=== PATIENT | female | born 1995 | race African-American/Black ===

== ENCOUNTER 2018-01-10 14:25 | Observation (INO) | payer MEDICAID ==
[~2018-01-10] VITALS: Ht 175.3 cm; Wt 95.7 kg
[2018-01-10 14:45] VITALS: BP 122/62
[2018-01-10 17:28] LABS: BASOPHILS % 0.3 % (0.0-2.0); EOSINOPHILS % 0.6 % (0.0-5.0); HEMATOCRIT. 30.8 % (36.0-48.0); HEMOGLOBIN. 10.2 g/dL (12.0-16.0); LYMPHOCYTES % 23.9 % (20.0-50.0); MEAN CORPUSCULAR HEMOGLOBIN 28.7 pg (28.0-32.0); MEAN CORPUSCULAR VOLUME 87.2 fL (81.0-99.0); MONOCYTES % 8.1 % (2.0-8.0); NEUTROPHILS % 67.1 % (40.0-76.0); PLATELET 269 x1000/uL (130-400); RED BLOOD CELL COUNT 3.53 mill/uL (4.2-5.4); RED CELL DISTRIBUTION WIDTH 13.7 % (11.6-14.6)
[2018-01-10] MEDS ORDERED: PNV1TABL76 MT (18:53)
== END 2018-01-10 19:00 | disposition home or self-care (01) ==
LOC: ER 14:25 → L&D 16:28
PROVIDERS: ADMIT Obstetrics & Gynecology; ATTEND Obstetrics & Gynecology
DX: O26.892 Other specified pregnancy related conditions, second trimester (principal); Z3A.25 25 weeks gestation of pregnancy; V89.2XXA Person injured in unspecified motor-vehicle accident, traffic, initial encounter; Y93.89 Activity, other specified; Y92.89 Other specified places as the place of occurrence of the external cause; Y99.8 Other external cause status
CPT/HCPCS: 36415; 76805; 85025; 99285; G0378

== ENCOUNTER 2018-01-11 07:45 | Emergency (ER) | payer MEDICAID ==
[~2018-01-11] VITALS: Ht 170.2 cm; Wt 78.0 kg
[~2018-01-11 07:45] MED LIST: PNV1TABL76 MT
[2018-01-11 07:56] VITALS: BP 118/62
[2018-01-11] MEDS ORDERED: ACETAMINOPHEN 325MG TABLET PO ONE (08:15)
== END 2018-01-11 08:42 | disposition home or self-care (01) ==
LOC: ER 07:45
DX: O99.89 Other specified diseases and conditions complicating pregnancy, childbirth and the puerperium (principal); M54.89 Other dorsalgia; M54.2 Cervicalgia; Z3A.28 28 weeks gestation of pregnancy; V49.50XA Passenger injured in collision with unspecified motor vehicles in traffic accident, initial encounter; Y93.89 Activity, other specified; Y92.410 Unspecified street and highway as the place of occurrence of the external cause
CPT/HCPCS: 99282